=== PATIENT | male | born 1965 | race Caucasian/White ===

== ENCOUNTER 2018-06-01 08:47 | Outpatient (CLI) | payer BC, SELFPAY ==
[2018-06-01 11:14] LABS: Anion Gap 6.9 mmol/L (3-11); BUN 23 mg/dL (7-18); CO2 28.1 mmol/L (21.0-32.0); Calcium 8.5 mg/dL (8.5-10.1); Chloride 105 mmol/L (98-107); Cholesterol 215 mg/dL (50-200); Glucose 108 mg/dL (70-100); HDL Cholesterol 54 mg/dL (40-60); LDL CHOLESTEROL 141 mg/dL (<100); Potassium 4.5 mmol/L (3.5-5.1); Sodium 140 mmol/L (136-145); TSH (W/Ref FT4) 2.66 uIU/mL (0.358-3.74); Triglyceride 115 mg/dL (30-150)
== END 2018-06-01 09:07 ==
PROVIDERS: PCP Internal Medicine; Visit Provider Internal Medicine
DX: E03.9 Hypothyroidism, unspecified (principal); R73.01 Impaired fasting glucose; R03.0 Elevated blood-pressure reading, without diagnosis of hypertension
CPT/HCPCS: 36415; 80048; 80061; 83721; 84443

== ENCOUNTER 2018-12-20 08:44 | Outpatient (CLI) | payer BC, SELFPAY ==
[2018-12-20 10:23] LABS: Glucose 117 mg/dL (70-100)
== END 2018-12-20 09:04 ==
PROVIDERS: PCP Internal Medicine; Visit Provider Internal Medicine
DX: R73.01 Impaired fasting glucose (principal)
CPT/HCPCS: 36415; 82947

== ENCOUNTER 2019-06-13 02:14 | Outpatient (CLI) | payer BC, SELFPAY ==
[2019-06-13 11:01] LABS: Anion Gap 9.9 mmol/L (3-11); BUN 15 mg/dL (7-18); CO2 27.1 mmol/L (21.0-32.0); CREATININE 0.78 mg/dL (0.70-1.30); Calcium 8.4 mg/dL (8.5-10.1); Calculated LDL 116 mg/dL (<100); Chloride 103 mmol/L (98-107); Cholesterol 199 mg/dL (<200); Glucose 112 mg/dL (74-106); HDL Cholesterol 57 mg/dL (40-60); Potassium 4.4 mmol/L (3.5-5.1); Sodium 140 mmol/L (136-145); TSH (W/Ref FT4) 6.03 uIU/mL (0.36-3.74); Triglyceride 131 mg/dL (<150)
[2019-06-13 11:28] LABS: FREE T4 0.94 ng/dL (0.76-1.46)
== END 2019-06-13 02:34 ==
PROVIDERS: PCP Internal Medicine; Visit Provider Internal Medicine
DX: I10 Essential (primary) hypertension (principal); E03.9 Hypothyroidism, unspecified; E78.00 Pure hypercholesterolemia, unspecified
CPT/HCPCS: 36415; 80048; 80061; 84439; 84443

== ENCOUNTER 2020-06-05 04:01 | Outpatient (CLI) | payer BC, SELFPAY ==
[2020-06-05 16:29] LABS: Anion Gap 8.5 mmol/L (3-11); BUN 11 mg/dL (7-18); CO2 28.5 mmol/L (21.0-32.0); CREATININE 0.9 mg/dL (0.70-1.30); Calcium 8.8 mg/dL (8.5-10.1); Calculated LDL 97 mg/dL (<100); Chloride 102 mmol/L (98-107); Cholesterol 172 mg/dL (<200); Glucose 95 mg/dL (74-106); HDL Cholesterol 58 mg/dL (40-60); Potassium 4.2 mmol/L (3.5-5.1); Sodium 139 mmol/L (136-145); TSH (W/Ref FT4) 4.29 uIU/mL (0.36-3.74); Triglyceride 86 mg/dL (<150)
[2020-06-05 16:46] LABS: FREE T4 1.22 ng/dL (0.76-1.46)
== END 2020-06-05 04:02 | disposition home or self-care (01) ==
LOC: LBO 04:01
PROVIDERS: PCP Internal Medicine; Visit Provider Internal Medicine
DX: E78.00 Pure hypercholesterolemia, unspecified (principal); R03.0 Elevated blood-pressure reading, without diagnosis of hypertension; R73.01 Impaired fasting glucose; E03.9 Hypothyroidism, unspecified
CPT/HCPCS: 36415; 80048; 80061; 84439; 84443

== ENCOUNTER 2020-06-27 01:21 | Outpatient (CLI) | payer BC, SELFPAY ==
--- NOTE | 2020-06-27 14:00 | ETT_ITS ---
APPROVED REPORT Exam: Exercise Treadmill Patient Location: Out-Patient Room/Bed: Stress Nurse: Iraida De Leon RN Ordering Provider:ROSELINE HEMPHILL, Contact Number: [phone] BMI: 35.43 Baseline Rhythm: Sinus Bradycardia Indications: Palpitations, anxiety Medical History Medical History: Hypertension, hypothyroidism, ROLY, impaired fasting glucose, obesity Cardiac Medications: Amlodipine Allergies: NKA Cardiac Risk Factors: Hypertension, smoker (former), obesity Previous Cardiac Procedures: None Pretest Chest Pain Characteristics: None Exercise History: Physically active Physical Disabilities: None Lung Sounds: Clear to auscultation Heart Sounds: Regular Stress Test Details Test: Exercise stress testing was performed using a Marco protocol. Rest Stress HR Resting HR Supine: 57 bpm Max Heart Rate (APMHR): 163 bpm Resting HR Standin bpm Target HR (85% APMHR): 138 bpm Max HR Achieved: 146 bpm % of APMHR: 89 Recovery HR: 79 bpm HR response to stress: Normal HR response to stress BP Resting BP Supine: 154/86 mmHg Resting BP Standin/84 mmHg Max BP: 228/68 mmHg Recovery BP: 168/80 mmHg BP response to stress: Abnormal hypertensive response to stress. ECG Resting ECG: Sinus Bradycardia Ectopy: None Stress ECG: Sinus Tachycardia, ST Change: No significant ST segment changes noted Arrhythmia: Frequent PACs. PVCs, couplet Recovery ECG: Sinus Rhythm Recovery ST Change: No significant ST segment changes noted Recovery Arrhythmia: Frequent PACs. PVCs, couplets Clinical Reason for Termination: Fatigue Stress Symptoms: General Fatigue, tightness in chest Exercise duration: 10 min35 sec Highest Stage Reached: Stage 4: 4.2 mph at 16% grade. Exercise capacity: 12.78 METs Lassiter Treadmill Score: 10 Rate Pressure Product: [id number] Stress ECG Conclusion 1. The patient exercised for 10 minutes (13 METS). Exercise was stopped due to fatigue and chest tigh tness. 2. The patient had a significantly hypertensive response to exercise. 3. There were no ECG changes suggestive of ischemia. Lassiter Treadmill Score is 10 which is Low risk. Stress Test Summary STAGE Time (mins) Speed (mph) Grade (%) HR BP SYMPTOMS METS Supine 57 154/86 Standing 54 166/84 1 3 1.7 10 83 176/78 4.6 2 6 2.5 12 104 180/78 7 3 9 3.4 14 119 210/74 10.2 1 min recovery 103 228/68 3 min recovery 82 206/74 6 min recovery 79 168/80
== END 2020-06-27 01:41 ==
PROVIDERS: PCP Internal Medicine; Visit Provider Internal Medicine
DX: R00.2 Palpitations (principal); F41.9 Anxiety disorder, unspecified; I10 Essential (primary) hypertension; F17.210 Nicotine dependence, cigarettes, uncomplicated
CPT/HCPCS: 93017

== ENCOUNTER 2021-06-17 03:07 | Outpatient (CLI) | payer BC, SELFPAY ==
[2021-06-17 15:49] LABS: Anion Gap 8.9 mmol/L (3-11); BUN 16 mg/dL (7-18); CO2 27.1 mmol/L (21.0-32.0); CREATININE 0.9 mg/dL (0.70-1.30); Calcium 8.4 mg/dL (8.5-10.1); Calculated LDL 116 mg/dL (<100); Chloride 101 mmol/L (98-107); Cholesterol 198 mg/dL (<200); Glucose 107 mg/dL (74-106); HDL Cholesterol 59 mg/dL (40-60); Potassium 4.5 mmol/L (3.5-5.1); Sodium 137 mmol/L (136-145); TSH (W/Ref FT4) 3.15 uIU/mL (0.36-3.74); Triglyceride 118 mg/dL (<150)
== END 2021-06-17 03:08 | disposition home or self-care (01) ==
LOC: LBO 03:07
PROVIDERS: PCP Internal Medicine; Visit Provider Internal Medicine
DX: I10 Essential (primary) hypertension (principal); E03.9 Hypothyroidism, unspecified
CPT/HCPCS: 36415; 80048; 80061; 84443

== ENCOUNTER 2022-06-10 02:52 | Outpatient (CLI) | payer BC, SELFPAY ==
[2022-06-10 10:20] LABS: HCT 41.2 % (40.0-50.0); HGB 14.9 g/dL (13.5-17.5); MCH 32.8 pg (27.0-33.0); MCHC 36.2 % (32.0-36.0); MCV 91 fL (80-95); MPV 10.1 fL (8.0-11.0); Platelet Count 226 10^3/uL (130-400); RBC 4.54 10^6/uL (4.36-5.78); RDW 12.4 % (11.8-14.1); WBC 3.72 10^3/uL (4.4-10.8)
[2022-06-10 10:46] LABS: ALT 23 U/L (16-63); AST 14 U/L (15-37); Albumin 3.7 g/dL (3.4-5.0); Alkaline Phosphatase 61 U/L (46-116); Anion Gap 6.3 mmol/L (3-11); BUN 18 mg/dL (7-18); Bilirubin, Total 0.7 mg/dL (0.2-1.0); CO2 28.7 mmol/L (21.0-32.0); Calcium 8.9 mg/dL (8.5-10.1); Calculated LDL 128 mg/dL (<100); Chloride 104 mmol/L (98-107); Cholesterol 205 mg/dL (<200); Glucose 114 mg/dL (74-106); HDL Cholesterol 63 mg/dL (40-60); Potassium 4.5 mmol/L (3.5-5.1); Sodium 139 mmol/L (136-145); TSH (W/Ref FT4) 2.12 uIU/mL (0.36-3.74); Triglyceride 74 mg/dL (<150)
== END 2022-06-10 02:53 | disposition home or self-care (01) ==
LOC: LBO 02:52
PROVIDERS: Absent Provider Nurse Practitioner; PCP Nurse Practitioner; Referring Provider Nurse Practitioner; Visit Provider Nurse Practitioner
DX: I10 Essential (primary) hypertension (principal); E03.9 Hypothyroidism, unspecified; G47.33 Obstructive sleep apnea (adult) (pediatric)
CPT/HCPCS: 36415; 80053; 80061; 85027; 84443